=== PATIENT | female | born 1945 | race Caucasian/White ===

== ENCOUNTER → 2021-08-28 | Outpatient (CLI) | payer MEDICARE, OTHER ==
[2021-08-28 12:09] LABS: CALCIUM 9.7 mg/dL (8.4-10.2); CREATININE, serum 0.94 mg/dL (0.57-1.11); POTASSIUM 4.3 mmol/L (3.5-4.5)
== END ==
LOC: COL.RAD 08-26 11:30
PROVIDERS: Family Medicine
DX: G31.9 Degenerative disease of nervous system, unspecified (principal)
CPT/HCPCS: Q9967

== ENCOUNTER 2023-07-27 18:59 | Observation (INO) | payer MEDICARE, OTHER ==
[~2023-07-27] VITALS: Ht 15.2 cm; Wt 75.4 kg
[2023-07-27 19:36] LABS: BASO # 0.1 K/mm3 (0.0-0.2); BASO % 0.6 % (0.0-2.0); EOS # 0.2 K/mm3 (0.0-0.7); EOS % 2.1 % (0.0-4.0); GRAN # 4.5 K/mm3 (1.4-6.5); GRAN % 52.1 % (42.2-75.2); HEMATOCRIT 45.5 % (37.0-47.0); HEMOGLOBIN 14.6 g/dl (12.5-16.0); LYMPH # 3.2 K/mm3 (1.2-3.4); LYMPH % 36.5 % (20.0-51.0); MEAN CELL VOLUME 100 fl (80.0-100.0); MEAN CORPUSCULAR HEMOGLOBIN 32 pg (27-31); MEAN CORPUSCULAR HGB CONC 32 g/dl (33.0-37.0); MEAN PLATELET VOLUME 9.1 fl (7.4-10.4); MONO # 0.7 K/mm3 (0.1-0.6); MONO % 7.9 % (1.7-9.3); PLATELET COUNT 232 K/mm3 (130-400); RED BLOOD COUNT 4.56 M/mm3 (4.10-5.30); REDCELL DISTRIBUTION WIDTH-CV 13.8 % (11.5-14.5)
[2023-07-27 19:40] LABS: COLLECTION METHOD CLEAN CATCH
[2023-07-27 19:42] LABS: INR 1.6 (0.8-3.0); PROTHROMBIN TIME 17.3 SECONDS (9.7-12.8)
[2023-07-27 19:44] LABS: PARTIAL THROMBOPLASTIN TIME 32.4 SECONDS (26.0-37.0)
[2023-07-27 19:52] LABS: SQUAMOUS EPITHELIAL 0-2 /hpf (0-10); URINE APPEARANCE Clear (CLEAR/HAZY); URINE BLOOD TRACE-INTACT (NEGATIVE); URINE COLOR Yellow (YELLOW); URINE GLUCOSE Negative (NEGATIVE); URINE KETONE Negative (NEGATIVE); URINE NITRATE Negative (NEGATIVE); URINE PROTEIN(semi-quant) Negative (NEGATIVE); URINE UROBILINOGEN 0.2 E.U/dL (0.2-1.0)
[2023-07-27 19:53] LABS: ALBUMIN 4.6 gm/dL (3.4-4.8); BILIRUBIN,TOTAL 0.7 mg/dL (0.2-1.2); CALCIUM 9.9 mg/dL (8.4-10.2); CREATININE, serum 1.15 mg/dL (0.57-1.11); POTASSIUM 4.4 mmol/L (3.5-4.5); TOTAL PROTEIN 8.2 gm/dL (6.2-8.1)
[2023-07-27] MEDS ORDERED: ELIQUIS 5MG PO (22:18)
[2023-07-27] MEDS ORDERED: TRELEGY ELLIPT1 EACH IH (22:19)
[2023-07-27] MEDS ORDERED: MULTAQ400 MG PO (22:19)
[2023-07-27] MEDS ORDERED: FOSAMAX 70MG TA70 MG PO (22:20)
[2023-07-27] MEDS ORDERED: PROAIR HFA0.09 MG/AC IH (22:21)
[2023-07-27] MEDS ORDERED: ALL DAY ALLERGY10 M3 PO (22:23)
[2023-07-27] MEDS ORDERED: NASONEX SPRAY17 GM NS (22:23)
[2023-07-27] MEDS ORDERED: ZANTAC-360 (FAM20 MG PO (22:24)
[2023-07-27 22:53] VITALS: BP 189/74; TEMP 97.7
--- NOTE | 2023-07-27 22:55 | NUR ---
PT ADMITTED TO ROOM 319 PER W/C. A&O. DAUGHTER AT SIDE. VERY SUPPORTIVE. SEE ASSESSMENT. CALL LIGHT AT BED SIDE. HIGH FALL RISK.
--- NOTE | 2023-07-27 23:57 | NUR ---
RT HERE TO UP FOR CPAP. PT VERY [place] W/O HEARING AIDS.
[2023-07-28] VITALS (8 sets, daily range): BP systolic 94–174; BP diastolic 43–81; PULSE 51–89; TEMP 96.7–98.4
--- NOTE | 2023-07-28 05:10 | NUR ---
PT HAS SLEPT WELL THIS SHIFT. NO COMPLAINTS. TAKES CPAP OFF AT TIMES.
[2023-07-28 05:55] LABS: HEMATOCRIT 40.7 % (37.0-47.0); HEMOGLOBIN 13.9 g/dl (12.5-16.0); MEAN CORPUSCULAR HEMOGLOBIN 32 pg (27-31); MEAN CORPUSCULAR HGB CONC 34 g/dl (33.0-37.0); MEAN PLATELET VOLUME 9.4 fl (7.4-10.4); PLATELET COUNT 213 K/mm3 (130-400); REDCELL DISTRIBUTION WIDTH-CV 13.7 % (11.5-14.5)
[2023-07-28 06:02] LABS: MEAN CELL VOLUME 95 fl (80.0-100.0)
[2023-07-28 06:19] LABS: ALBUMIN 3.9 gm/dL (3.4-4.8); BILIRUBIN,TOTAL 0.9 mg/dL (0.2-1.2); CALCIUM 9.4 mg/dL (8.4-10.2); CHOLESTEROL RISK RATIO 3.2; CREATININE, serum 0.94 mg/dL (0.57-1.11); TOTAL PROTEIN 6.8 gm/dL (6.2-8.1)
[2023-07-28 06:41] LABS: THYROID STIMULATING HORMONE 3.803 uIU/mL (0.350-4.940)
--- NOTE | 2023-07-28 08:32 | NUR ---
Patient is alert and oriented x4 this morning. Shift assessment complete. Patient denies ongoing numbness to left arm, states it bothered her after lab shawn blood, but has not bothered her since. No arm drift noted, hand wholesale parts salesperson equal. No facial droop or slurred speech noted. Cardiac consult called to Luis Fernando's office. Patient complains of headache, PRN Tylenol administered. BP noted to still be elevated, but trending down from yesterday. Patient currently sitting up in bed waiting for breakfast, call light within reach. All needs met at this time, update provided to patient's daughter.
[2023-07-28] MEDS ORDERED: TYLENOL 500MG500 MG PO (10:22)
[2023-07-28] MEDS ORDERED: CALCIUM WITH D31 CTB PO (10:23)
--- NOTE | 2023-07-28 13:57 | NUR ---
Patient remains stable. BP has decreased since this morning. Orthostatic BP obtained, noted drop in systolic upon standing up. Patient continues to complain of headache unresolved by Tylenol. Currently resting in bed with lights off with call light in reach.
--- NOTE | 2023-07-28 15:24 | NUR ---
Initial visit: Photolithographic Stripper stopped by room on rounds. Pt was resting and content. Pt has no needs right now. Photolithographic Stripper will follow up as needed.
--- NOTE | 2023-07-28 16:05 | NUR ---
Embroidery Assistant met with Rama at bedside to conduct Care Managment Assessment and discuss discharge planning. Patient lives alone in [place], [place] and states that her emergency contact Lindsey is her DPOAHC. Jasmin is established with PCP Josefa Gutiérrez and is covered by [facility] and [facility] for insurance. Patient requests discharge medications be sent to [facility] in [place], [place] Patient endorses the use of CPAP prior to admission and states that her daughter is bringing her mask on site today. Patient endorses independency with ADL/IADLs prior to admision. Patient anticipates to discharge home when medically ready.
--- NOTE | 2023-07-28 20:30 | NUR ---
Patient resting in bed. States she has a headache and rates that pain a 6/10, prn pain meds given. Assessment complete. IV in right AC flushes easily. Denies any other needs at this time. Call light and personal items in reach. Bed in low position and bed alarm on.
[2023-07-29] VITALS (8 sets, daily range): BP systolic 98–148; BP diastolic 55–66; PULSE 62–69; TEMP 96.9–97.8
--- NOTE | 2023-07-29 06:15 | NUR ---
Patient resting in bed. Denies any pain at this time. Denies any needs at this time. Call light and personal items in reach. Bed in low position and bed alarm on.
--- NOTE | 2023-07-29 10:08 | NUR ---
MD INFORMED OF ORTHOSTATIC BP RESULTS.
[2023-07-29] MEDS ORDERED: LIPITOR 40MG TA40 MG PO (10:17)
--- NOTE | 2023-07-29 10:34 | NUR ---
THIS RN CALLED IN PATIENT PRESCRIPTION TO SALLY STEVENS ATORVASTAT 40 MG QHS. 30 PILLS, NO REFILLS ON DISCHARGE PAPER WORK.
--- NOTE | 2023-07-29 10:42 | NUR ---
RUFINA LARKIN IN [facility] CALLED AND SUCCESSFULLY CANCELED ATORVASTATIN.
--- NOTE | 2023-07-29 10:43 | NUR ---
PATINETS IV AND TELE REMOVED.
--- NOTE | 2023-07-29 11:15 | NUR ---
PATIENT GIVEN DSICHARGE INSTRUCTIONS AND EDUCATION WITH DAUGHTER PRESENT. ALL QUESTIONS ANSWERED. PATIENT LEFT IN STABLE CONDITION IN THE CARE OF HER DAUGHTER.
== END 2023-07-29 11:39 | disposition home or self-care (01) ==
LOC: COL.ER 18:59 → MEDICAL 21:30
PROVIDERS: Emergency Medicine; Physician Assistant; ADMIT Internal Medicine
DX: R20.2 Paresthesia of skin (principal); R42 Dizziness and giddiness; I48.0 Paroxysmal atrial fibrillation; I16.0 Hypertensive urgency; I87.2 Venous insufficiency (chronic) (peripheral); R07.89 Other chest pain; G47.33 Obstructive sleep apnea (adult) (pediatric); J45.909 Unspecified asthma, uncomplicated; Z99.81 Dependence on supplemental oxygen; Z79.01 Long term (current) use of anticoagulants; Z79.899 Other long term (current) drug therapy; Z95.818 Presence of other cardiac implants and grafts
CPT/HCPCS: A9575; G0378; J7030; Q9967

== ENCOUNTER 2023-11-17 18:31 | Emergency (ER) | payer MEDICARE, OTHER ==
[~2023-11-17] VITALS: Ht 167.6 cm; Wt 74.5 kg
[~2023-11-17 18:31] MED LIST: ALL DAY ALLERGY10 M3 PO; CALCIUM WITH D31 CTB PO; ELIQUIS 5MG PO; FOSAMAX 70MG TA70 MG PO; LIPITOR 40MG TA40 MG PO; MULTAQ400 MG PO; NASONEX SPRAY17 GM NS; PROAIR HFA0.09 MG/AC IH; TRELEGY ELLIPT1 EACH IH; TYLENOL 500MG500 MG PO; ZANTAC-360 (FAM20 MG PO
[2023-11-17 18:38] VITALS: TEMP 98.4
[2023-11-17 19:38] LABS: BASO % 0.3 % (0.0-2.0); EOS % 0.2 % (0.0-4.0); GRAN # 8.6 K/mm3 (1.4-6.5); GRAN % 79.1 % (42.2-75.2); HEMATOCRIT 46.9 % (37.0-47.0); HEMOGLOBIN 15.3 g/dl (12.5-16.0); LYMPH # 1.5 K/mm3 (1.2-3.4); LYMPH % 13.9 % (20.0-51.0); MEAN CELL VOLUME 100 fl (80.0-100.0); MEAN CORPUSCULAR HEMOGLOBIN 33 pg (27-31); MEAN CORPUSCULAR HGB CONC 33 g/dl (33.0-37.0); MEAN PLATELET VOLUME 9.4 fl (7.4-10.4); MONO # 0.6 K/mm3 (0.1-0.6); MONO % 5.7 % (1.7-9.3); PLATELET COUNT 237 K/mm3 (130-400); RED BLOOD COUNT 4.69 M/mm3 (4.10-5.30); REDCELL DISTRIBUTION WIDTH-CV 13.2 % (11.5-14.5)
[2023-11-17 20:02] LABS: ALBUMIN 4.3 gm/dL (3.4-4.8); BILIRUBIN,TOTAL 1.3 mg/dL (0.2-1.2); CALCIUM 9.2 mg/dL (8.4-10.2); CREATININE, serum 0.87 mg/dL (0.57-1.11); POTASSIUM 3.7 mmol/L (3.5-4.5); TOTAL PROTEIN 7.9 gm/dL (6.2-8.1)
[2023-11-17 20:07] LABS: TROPONIN-I 0.023 ng/mL (0.00-0.033)
[2023-11-17 20:49] LABS: COLLECTION METHOD CLEAN CATCH
[2023-11-17 21:06] LABS: URINE APPEARANCE CLEAR (CLEAR/HAZY); URINE BLOOD TRACE (NEGATIVE); URINE COLOR YELLOW (YELLOW); URINE GLUCOSE NEGATIVE (NEGATIVE); URINE KETONE NEGATIVE (NEGATIVE); URINE NITRATE NEGATIVE (NEGATIVE); URINE PROTEIN(semi-quant) 1+ (NEGATIVE); URINE UROBILINOGEN 0.2 E.U/dL (0.2-1.0)
[2023-11-17 21:46] VITALS: BP 162/88; PULSE 75
== END 2023-11-17 21:46 | disposition home or self-care (01) ==
LOC: COL.ER 18:31
PROVIDERS: Personal Emergency Response Attendant
DX: F32.89 Other specified depressive episodes (principal); R53.83 Other fatigue; Z98.890 Other specified postprocedural states

== ENCOUNTER → 2024-06-04 | Outpatient (CLI) | payer MEDICARE, OTHER ==
[~2024-06-04] MED LIST changes: +Albuterol 0.083% Neb Soln 2.5 MG/3 ML UD IH ONE; +Methacholine Vial A (Clear Label Base-Cntrl) IH ONE; +Methacholine Vial B (Red Label) 0.0625 MG/ML 3 ML VIAL.NEB IH ONE; +Methacholine Vial C (Orange Label) 0.25 MG/ML 3 ML VIAL.NEB IH ONE; +Methacholine Vial D (Yellow Label) 1 MG/ML 3 ML VIAL.NEB IH ONE; +Methacholine Vial E (Green Label) 4 MG/ML 3 ML VIAL.NEB IH ONE; +Methacholine Vial F (Blue Label) 16 MG/ML 3 ML VIAL.NEB IH ONE
== END ==
LOC: COL.CARD 11:54
DX: R06.02 Shortness of breath (principal)
CPT/HCPCS: J7674